=== PATIENT | female | born 1960 | race Caucasian/White ===

== ENCOUNTER 2019-07-28 18:38 | Emergency (ER) | payer MEDICARE, BC ==
[2019-07-28 18:53] VITALS: BP 169/71; PULSE 64
[2019-07-28] MEDS ORDERED: Sodium Chloride 0.9% 10 ML Syringe FLUSH PRN (19:42)
[2019-07-28] MEDS ORDERED: Sodium Chloride 0.9% 1,000 ML IV ONE (19:43)
[2019-07-28] MEDS ORDERED: Alum Hydrox/Mag Hydrox/Simeth 30 ML, Lidocaine 2% 15 ML PO ONE ×2 (21:55)
[2019-07-28] MEDS ORDERED: Ondansetron 4 MG/2 ML SDV IVPUSH ONE (22:36)
[2019-07-28] MEDS ORDERED: Famotidine 20 MG/2 ML SDV IVPUSH ONE (22:41)
--- NOTE | 2019-07-28 23:01 | EDM.PDOC ---
ED HPI GENERAL MEDICAL PROBLEM - General Chief Complaint: Abdominal Pain Stated Complaint: abdominal and back pain Time Seen by Provider: 07/28/19 19:14 Source of Information: Reports: Patient History Limitations: Reports: No Limitations - History of Present Illness INITIAL COMMENTS - FREE TEXT/NARRATIVE: 58-year-old female presents for evaluation and treatment of abdominal pain. Patient reports pain started on Friday. States that started in the left side of her back. Now radiates into her left upper quadrant and epigastric area. She feels that eating worsens the pain. She reports associated symptoms of nausea, decreased appetite and diaphoresis. She's not tried any esoz-pwl-[id number] medications such as Tylenol or Motrin. She denies any vomiting or syncope. States that she has chronic diarrhea from being on several stool softeners. Last bowel movement was today. No blood in her stool. She reports she has been feeling lightheaded. She has not slept since Friday due to the pain. She reports subjective fevers and chills. She is a diabetic and states that her sugars have been running in the high side around to 59. Reports that she is a history of kidney failure. She is not currently on dialysis they're currently watching her kidney function. Primary care provider is Dr. Ho. Scaffolder is Dr. Gee. Left Upper Abdomen Pain Score (Numeric/FACES): 9 - Related Data Allergies Allergy/AdvReac Type Severity Reaction Status Date / Time acetaminophen Allergy Chills Verified 07/28/19 18:58 [From Darvocet-N] clindamycin Allergy Hives Verified 07/28/19 18:58 codeine Allergy Rash Verified 07/31/19 10:17 duloxetine [From Cymbalta] Allergy Cannot Verified 07/31/19 10:17 Remember ibuprofen [From Motrin] Allergy Rash Verified 07/31/19 10:17 insulin detemir Allergy Swelling Verified 07/31/19 10:17 [From Levemir U-100 Insulin] iodine Allergy Facial Verified 07/31/19 10:17 Swelling milk Allergy Diarrhea Verified 07/31/19 10:17 propoxyphene Allergy Chills Verified 07/31/19 10:17 [From Darvocet-N] ranolazine [From Ranexa] Allergy Cannot Verified 07/31/19 10:17 Remember shellfish derived Allergy Shortness Verified 07/31/19 10:17 of Breath Sulfa (Sulfonamide Allergy Cannot Verified 07/31/19 10:17 Antibiotics) Remember aspartame AdvReac Nausea and Verified 07/28/19 18:58 Vomiting eszopiclone [From Lunesta] AdvReac Confusion Verified 07/28/19 18:58 gabapentin [From Neurontin] AdvReac Confusion Verified 07/28/19 18:58 sulfanilamide [Sulfanilamide] AdvReac Nausea and Verified 07/28/19 18:58 Vomiting EGGS AdvReac Diarrhea Uncoded 09/17/18 12:10 Home Meds: Home Meds Docusate Sodium [Stool Softener] 200 mg PO BID 03/28/14 [History] Insulin Aspart [Novolog Flexpen] 0 units SUBCUT ASDIRECTED 03/28/14 [History] Irbesartan [Avapro] 150 mg PO DAILY 03/28/14 [History] Levothyroxine Sodium 25 mcg PO ASDIRECTED 03/28/14 [History] Multivit-Min/FA/Lycopene/Lut [Centrum Silver] 1 tab PO DAILY 03/28/14 [History] Polyethylene Glycol 3350 [MiraLAX] 17 gm PO BID PRN 03/28/14 [History] Simvastatin 20 mg PO DAILY 03/28/14 [History] hydrALAZINE [Apresoline] 50 mg PO BID 03/28/14 [History] Cholecalciferol (Vitamin D3) [Vitamin D3] 5,000 unit PO DAILY 01/24/15 [History] Aspirin [Adult Low Dose Aspirin EC] 81 mg PO DAILY 09/17/18 [History] Bumetanide 2 mg PO ASDIRECTED 09/17/18 [History] Ferrous Sulfate 325 mg PO DAILY 09/17/18 [History] Folic Acid 1 mg PO DAILY 09/17/18 [History] Isosorbide Mononitrate [Imdur] 60 mg PO DAILY 09/17/18 [History] Metoprolol Succinate 200 mg PO DAILY 09/17/18 [History] amLODIPine Besylate [Amlodipine Besylate] 5 mg PO DAILY 09/17/18 [History] metOLazone [Metolazone] 2.5 mg PO MOTHSA 09/17/18 [History] prednisoLONE acetate [Pred Forte 1% Ophth Susp] 1 drop EYERT TID 09/17/18 [ History] Insulin Glarg,Human.Rec.Analog [Lantus Solostar] 40 units SQ DAILY 11/03/18 [ History] Linaclotide [Linzess] 145 mcg PO DAILY 11/03/18 [History] Omeprazole 20 mg PO BID 11/03/18 [History] guaiFENesin [Mucinex] 1,200 mg PO BID 11/03/18 [History] Ondansetron [Zofran ODT] 4 mg PO Q8H PRN #20 tab.dis 07/28/19 [Rx] Sucralfate [Carafate] 1 gm PO TID #21 tablet 07/28/19 [Rx] HYDROmorphone [Dilaudid] 2 mg PO Q6H PRN #10 tab 07/31/19 [Rx] Past Medical History HEENT History: Reports: Impaired Vision, Other (See Below) Other HEENT History: glasses and dentures Cardiovascular History: Reports: Heart Failure, High Cholesterol, Hypertension Other Cardiovascular History: peripheral edema, mitral valve regurgitation, diastolic dysfunction, coronary angiogram Respiratory History: Reports: None Gastrointestinal History: Reports: Gastritis, GERD, Other (See Below) Other Gastrointestinal History: abdominal pain, gastroparesis Genitourinary History: Reports: Chronic Renal Insuffiency Other Genitourinary History: Pt has shunt to left arm for dialysis. 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: Musculoskeletal History: Reports: Back Pain, Chronic Other Musculoskeletal History: myofascial pain, shoulder pain, bilateral wrist pain, right bunion Neurological History: Reports: CVA, Neuropathy, Diabetic Other Neuro History: cerebral artery occulusion with infarction, cervical and lumbar degenerative disc disease Psychiatric History: Reports: Anxiety, Depression Endocrine/Metabolic History: Reports: Diabetes, Type II, Hypothyroidism, Obesity /BMI 30+ Hematologic History: Reports: Anemia, B12 Deficiency, Iron Deficiency Immunologic History: Reports: None Oncologic (Cancer) History: Reports: None Dermatologic History: Reports: None Other Dermatologic History: toe ulcer, hallux limitus, cyst excsion - Infectious Disease History Infectious Disease History: Reports: None - Past Surgical History HEENT Surgical History: Reports: Cataract Surgery, Oral Surgery, Tonsillectomy Cardiovascular Surgical History: Reports: Other (See Below) Respiratory Surgical History: Reports: None GI Surgical History: Reports: Appendectomy, Colonoscopy, EGD Female Surgical History: Reports: Section, Oophorectomy Musculoskeletal Surgical History: Reports: Carpal Tunnel, ORIF, Shoulder Surgery , Other (See Below) Oncologic Surgical History: Reports: None Social & Family History - Tobacco Use Smoking Status *Q: Never Smoker - Caffeine Use Caffeine Use: Reports: Soda - Recreational Drug Use Recreational Drug Use: No - Living Situation & Occupation Living situation: Reports: , with Family (Son) Occupation: Unemployed ED ROS GENERAL - Review of Systems Review Of Systems: See Below Constitutional: Reports: Fever (subjective), Chills, Malaise, Diaphoresis, Decreased Appetite Cardiovascular: Reports: Lightheadedness. Denies: Chest Pain, Syncope Endocrine: Denies: High Glucose, Low Glucose GI/Abdominal: Reports: Abdominal Pain (LUQ and epigastric), Diarrhea (chronic), Nausea. Denies: Hematochezia, Melena, Vomiting : Reports: Flank Pain (left) Neurological: Denies: Syncope ED EXAM, GI/ABD - Physical Exam Exam: See Below Exam Limited By: No Limitations General Appearance: Alert, WD/WN, No Apparent Distress, Obese Ears: Normal External Exam Nose: Normal Inspection Throat/Mouth: Normal Inspection, Normal Lips, Normal Oropharynx, Normal Voice, No Airway Compromise Neck: Normal Inspection Respiratory/Chest: No Respiratory Distress, Lungs Clear, Normal Breath Sounds Cardiovascular: Normal Peripheral Pulses, Regular Rate, Rhythm, No Murmur GI/Abdominal Exam: Normal Bowel Sounds, Soft, No Distention, Tender (epigastric and LUQ). No: Guarding, Rigid Neurological: Alert, Oriented, Normal Cognition Psychiatric: Normal Affect, Normal Mood Skin Exam: Warm, Dry, Normal Color Course - Vital Signs Last Recorded V/S: Last Vital Signs Temp 97.7 F 07/28/19 19:07 Pulse 64 07/28/19 18:48 Resp 16 07/28/19 18:48 BP 169/71 H 07/28/19 18:48 Pulse Ox 100 07/28/19 18:48 - Orders/Labs/Meds Labs: Laboratory Tests 07/28/19 07/28/19 07/28/19 Range/Units 20:30 20:30 21:33 WBC 7.50 (3.98-10.04) K/mm3 RBC 4.24 (3.98-5.22) M/mm3 Hgb 10.3 L (11.2-15.7) gm/L Hct 33.7 L (34.1-44.9) % MCV 79.5 (79.4-94.8) fl MCH 24.3 L (25.6-32.2) pg MCHC 30.6 L (32.2-35.5) g/dl RDW Std Deviation 47.1 H (36.4-46.3) fL Plt Count 271 (182-369) K/mm3 MPV 10.6 (9.4-12.3) fl Neut % (Auto) 74.0 H (34.0-71.1) % Lymph % (Auto) 16.1 L (19.3-51.7) % Lyman % (Auto) 7.2 (4.7-12.5) % Eos % (Auto) 2.3 (0.7-5.8) Baso % (Auto) 0.3 (0.1-1.2) % Neut # (Auto) 5.55 (1.56-6.13) K/mm3 Lymph # (Auto) 1.21 (1.18-3.74) K/mm3 Lyman # (Auto) 0.54 H (0.24-0.36) K/mm3 Eos # (Auto) 0.17 (0.04-0.36) K/mm3 Baso # (Auto) 0.02 (0.01-0.08) K/mm3 Sodium 137 (136-145) mEq/L Potassium 3.6 (3.5-5.1) mEq/L Chloride 101 (98-107) mEq/L Carbon Dioxide 27 (21-32) mEq/L Anion Gap 12.6 (5-15) BUN 71 H (7-18) mg/dL Creatinine 2.6 H (0.55-1.02) mg/dL Est Cr Clr Drug Dosing 20.61 mL/min Estimated GFR (MDRD) 19 (>60) mL/min BUN/Creatinine Ratio 27.3 H (14-18) Glucose 149 H (74-106) mg/dL Calcium 9.1 (8.5-10.1) mg/dL Total Bilirubin 0.4 (0.2-1.0) mg/dL AST 7 L (15-37) U/L ALT 11 L (14-59) U/L Alkaline Phosphatase 130 H (46-116) U/L C-Reactive Protein 2.2 H* (<1.0) mg/dL Total Protein 7.8 (6.4-8.2) g/dl Albumin 3.4 (3.4-5.0) g/dl Globulin 4.4 gm/dL Albumin/Globulin Ratio 0.8 L (1-2) Lipase 43 L (73-393) U/L Urine Color Yellow (Yellow) Urine Appearance Clear (Clear) Urine pH 6.0 (5.0-8.0) Ur Specific [place] 1.010 (1.005-1.030) Urine Protein Negative (Negative) Urine Glucose (UA) Negative (Negative) Urine Ketones Negative (Negative) Urine Occult Blood Negative (Negative) Urine Nitrite Negative (Negative) Urine Bilirubin Negative (Negative) Urine Urobilinogen 0.2 (0.2-1.0) Ur Leukocyte Esterase Negative (Negative) Urine RBC Not seen (0-5) /hpf Urine WBC Not seen (0-5) /hpf Ur Squamous Epith Cells 0-5 (0-5) /hpf Urine Bacteria Not seen (FEW) /hpf Urine Mucus Not seen (FEW) /hpf Meds: Medications Discontinued Medications Generic Name Dose Route Start Last Admin Trade Name Freq PRN Reason Stop Dose Admin Al Hydroxide/Mg Hydroxide 30 0 ml 07/28/19 21:55 07/28/19 22:12 ml/ Lidocaine HCl 15 ml PO 07/28/19 21:56 45 ml ONETIME ONE Administration Famotidine 20 mg 07/28/19 22:41 07/28/19 22:48 Pepcid IVPUSH 07/28/19 22:42 20 mg ONETIME ONE Administration Hydromorphone HCl 0.5 mg 07/28/19 23:28 07/28/19 23:48 Dilaudid IVPUSH 07/28/19 23:29 0.5 mg ONETIME ONE Administration Sodium Chloride 1,000 mls @ 999 mls/hr 07/28/19 19:43 07/28/19 20:33 Normal Saline IV 07/28/19 20:43 999 mls/hr ONETIME ONE Administration Ondansetron HCl 4 mg 07/28/19 22:36 07/28/19 22:44 Zofran IVPUSH 07/28/19 22:37 4 mg ONETIME ONE Administration Sodium Chloride 10 ml 07/28/19 19:42 07/28/19 20:33 Saline Flush FLUSH 10 ml ASDIRECTED PRN Administration Keep Vein Open - Radiology Interpretation Free Text/Narrative:: CT of the abdomen and pelvis without contrast impression per vrad: no acute findings. decompressed stomach which may or may not be pathologic. If pathologic , there could be gastritis - Re-Assessments/Exams Free Text/Narrative Re-Assessment/Exam: 07/28/19 23:23 I reviewed the labs and imaging with the patient. Suspect gastritis as the cause of her symptoms today. EGD report from one year ago reviewed. negative for h.pylori. Will discharge home at this time. Recommend follow-up in the clinic. Discharge instructions as documented. Departure - Departure Time of Disposition: 23:29 Disposition: Home, Self-Care 01 Condition: Fair Clinical Impression: Gastritis - Discharge Information *PRESCRIPTION DRUG MONITORING PROGRAM REVIEWED*: No *COPY OF PRESCRIPTION DRUG MONITORING REPORT IN PATIENT CHARO: No Prescriptions: Ondansetron [Zofran ODT] 4 mg PO Q8H PRN #20 tab.dis PRN Reason: Nausea Sucralfate [Carafate] 1 gm PO TID #21 tablet Instructions: Gastritis, Adult, [id number] Referrals: Shania Ho MD [Primary Care Provider] - Forms: ED Department Discharge Additional Instructions: You were given medication in the ER that can affect your ability to drive and operate machinery. Do not drive or operate machinery within 10 hours of taking prescription narcotic pain medication. zofran 1 tab sublingual every 8 hours prn nausea. Carafate 1 tab 3 times a day. Follow-up with your primary care provider this week or early next week. please return to the ER if your symptoms change or worsen.[email or web address]
[2019-07-28] MEDS ORDERED: HYDROmorphone 0.5 MG/0.5 ML Syringe IVPUSH ONE (23:28)
--- NOTE | 2019-08-02 06:39 | CT ---
CT abdomen and pelvis Technique: Multiple axial sections were obtained from above the dome of the diaphragm inferiorly through the pubic symphysis. Intravenous and oral contrast was not utilized. Study has been performed as a ureteral stone protocol. Comparison: Prior CT abdomen and pelvis exam of 06/18/12. Findings: Visualized lung bases show nothing acute. Calcifications are seen within the spleen believed to be vascular. Noncontrast appearance of the liver shows no focal abnormality. Small layering calcified gallstones are seen within the gallbladder. Adrenal glands appear within normal limits. Pancreas is atrophic and shows no other discrete abnormality. Soft tissue nodule is noted medial to the spleen which is felt compatible with accessory splenic tissue. Aorta shows no aneurysm with mild atherosclerotic calcification. This atherosclerotic calcification continues into branch vessels as well as into the iliac arteries. No aneurysm is seen. No pelvic mass or adenopathy is seen. Appendix is not visualized with certainty. No abnormal calcifications are seen within the right or left kidneys. No ureteral dilatation or ureteral stone is seen. Other findings: Small hiatal hernia is seen. Thickening of the stomach wall is seen which is most likely due to lack of distention. Bone window settings were reviewed which show scattered disc space narrowing and vacuum phenomena within the spine as well as scattered endplate osteophytes. Impression: 1. No renal calculi, ureteral dilatation or ureteral stone is seen. 2. Wall thickening within the stomach most likely due to under-distention. 3. Small layering calcified gallstones. 4. Other findings as described above which appear nonacute. Diagnostic code #3 I agree with preliminary report from [facility], finalized on 07/28/19, 10:45 PM Central Time
== END 2019-07-29 00:12 | disposition home or self-care (01) ==
LOC: JD.ED 18:38
DX: K29.70 Gastritis, unspecified, without bleeding (principal); E11.22 Type 2 diabetes mellitus with diabetic chronic kidney disease; I13.0 Hypertensive heart and chronic kidney disease with heart failure and stage 1 through stage 4 chronic kidney disease, or unspecified chronic kidney disease; N18.9 Chronic kidney disease, unspecified; I50.9 Heart failure, unspecified; E03.9 Hypothyroidism, unspecified; E66.9 Obesity, unspecified; F32.9 Major depressive disorder, single episode, unspecified; F41.9 Anxiety disorder, unspecified; E78.00 Pure hypercholesterolemia, unspecified; K21.9 Gastro-esophageal reflux disease without esophagitis; Z88.8 Allergy status to other drugs, medicaments and biological substances; Z91.013 Allergy to seafood; Z88.5 Allergy status to narcotic agent; Z91.011 Allergy to milk products; Z91.048 Other nonmedicinal substance allergy status; Z79.899 Other long term (current) drug therapy; Z79.82 Long term (current) use of aspirin; Z79.4 Long term (current) use of insulin; Z68.30 Body mass index [BMI] 30.0-30.9, adult; Z98.890 Other specified postprocedural states; Z90.49 Acquired absence of other specified parts of digestive tract; Z90.722 Acquired absence of ovaries, bilateral; Z86.2 Personal history of diseases of the blood and blood-forming organs and certain disorders involving the immune mechanism
CPT/HCPCS: 36415; 74176; 80053; 81001; 83690; 85025; 86140; 96361; 96374; 96375; 99284; A9270; J1170; J2405; J3490; J7040

== ENCOUNTER 2019-07-31 10:11 | Emergency (ER) | payer MEDICARE, BC ==
[2019-07-31 10:23] VITALS: BP 141/48; PULSE 66
[2019-07-31] MEDS ORDERED: Sodium Chloride 0.9% 10 ML Syringe FLUSH PRN (10:47)
[2019-07-31] MEDS ORDERED: Sodium Chloride 0.9% 1,000 ML IV STA (10:47)
[2019-07-31] MEDS: Metoclopramide 10 MG/2 ML SDV IVPUSH ONE ×2 (11:00→11:02)
--- NOTE | 2019-07-31 11:53 | EDM.PDOC ---
ED HPI GENERAL MEDICAL PROBLEM - General Chief Complaint: Abdominal Pain Stated Complaint: ABDOMINAL PAIN Time Seen by Provider: 07/31/19 10:31 Source of Information: Reports: Patient History Limitations: Reports: No Limitations - History of Present Illness INITIAL COMMENTS - FREE TEXT/NARRATIVE: The patient presents with abdominal pain. This started about 4 days ago. She was awa here about 3 days ago and had a CT done that did not show any problems other then gastritis. Her creatinine was elevated but she has renal insufficiency for which she sees Dr Gee. She still feels bloated and she has not had a bowel movement for a few days. She has no fever, chills, cough, congestion, chest pain or shortness of breath. Onset: Gradual Duration: Day(s): (4) Location: Reports: Abdomen Quality: Reports: Ache Severity: Moderate Improves with: Reports: None Worsens with: Reports: None Associated Symptoms: Reports: Nausea/Vomiting. Denies: Chest Pain, Cough, Fever /Chills, Headaches, Shortness of Breath Abdomen Pain Score (Numeric/FACES): 10 - Related Data Allergies Allergy/AdvReac Type Severity Reaction Status Date / Time acetaminophen Allergy Chills Verified 07/28/19 18:58 [From Darvocet-N] clindamycin Allergy Hives Verified 07/28/19 18:58 codeine Allergy Rash Verified 07/31/19 10:17 duloxetine [From Cymbalta] Allergy Cannot Verified 07/31/19 10:17 Remember ibuprofen [From Motrin] Allergy Rash Verified 07/31/19 10:17 insulin detemir Allergy Swelling Verified 07/31/19 10:17 [From Levemir U-100 Insulin] iodine Allergy Facial Verified 07/31/19 10:17 Swelling milk Allergy Diarrhea Verified 07/31/19 10:17 propoxyphene Allergy Chills Verified 07/31/19 10:17 [From Darvocet-N] ranolazine [From Ranexa] Allergy Cannot Verified 07/31/19 10:17 Remember shellfish derived Allergy Shortness Verified 07/31/19 10:17 of Breath Sulfa (Sulfonamide Allergy Cannot Verified 07/31/19 10:17 Antibiotics) Remember aspartame AdvReac Nausea and Verified 07/28/19 18:58 Vomiting eszopiclone [From Lunesta] AdvReac Confusion Verified 07/28/19 18:58 gabapentin [From Neurontin] AdvReac Confusion Verified 07/28/19 18:58 sulfanilamide [Sulfanilamide] AdvReac Nausea and Verified 07/28/19 18:58 Vomiting EGGS AdvReac Diarrhea Uncoded 09/17/18 12:10 Home Meds: Home Meds Docusate Sodium [Stool Softener] 200 mg PO BID 03/28/14 [History] Insulin Aspart [Novolog Flexpen] 0 units SUBCUT ASDIRECTED 03/28/14 [History] Irbesartan [Avapro] 150 mg PO DAILY 03/28/14 [History] Levothyroxine Sodium 25 mcg PO ASDIRECTED 03/28/14 [History] Multivit-Min/FA/Lycopene/Lut [Centrum Silver] 1 tab PO DAILY 03/28/14 [History] Polyethylene Glycol 3350 [MiraLAX] 17 gm PO BID PRN 03/28/14 [History] Simvastatin 20 mg PO DAILY 03/28/14 [History] hydrALAZINE [Apresoline] 50 mg PO BID 03/28/14 [History] Cholecalciferol (Vitamin D3) [Vitamin D3] 5,000 unit PO DAILY 01/24/15 [History] Aspirin [Adult Low Dose Aspirin EC] 81 mg PO DAILY 09/17/18 [History] Bumetanide 2 mg PO ASDIRECTED 09/17/18 [History] Ferrous Sulfate 325 mg PO DAILY 09/17/18 [History] Folic Acid 1 mg PO DAILY 09/17/18 [History] Isosorbide Mononitrate [Imdur] 60 mg PO DAILY 09/17/18 [History] Metoprolol Succinate 200 mg PO DAILY 09/17/18 [History] amLODIPine Besylate [Amlodipine Besylate] 5 mg PO DAILY 09/17/18 [History] metOLazone [Metolazone] 2.5 mg PO MOTHSA 09/17/18 [History] prednisoLONE acetate [Pred Forte 1% Ophth Susp] 1 drop EYERT TID 09/17/18 [ History] Insulin Glarg,Human.Rec.Analog [Lantus Solostar] 40 units SQ DAILY 11/03/18 [ History] Linaclotide [Linzess] 145 mcg PO DAILY 11/03/18 [History] Omeprazole 20 mg PO BID 11/03/18 [History] guaiFENesin [Mucinex] 1,200 mg PO BID 11/03/18 [History] Ondansetron [Zofran ODT] 4 mg PO Q8H PRN #20 tab.dis 07/28/19 [Rx] Sucralfate [Carafate] 1 gm PO TID #21 tablet 07/28/19 [Rx] HYDROmorphone [Dilaudid] 2 mg PO Q6H PRN #10 tab 07/31/19 [Rx] Past Medical History HEENT History: Reports: Impaired Vision, Other (See Below) Other HEENT History: glasses and dentures Cardiovascular History: Reports: Heart Failure, High Cholesterol, Hypertension Other Cardiovascular History: peripheral edema, mitral valve regurgitation, diastolic dysfunction, coronary angiogram Respiratory History: Reports: None Gastrointestinal History: Reports: Gastritis, GERD, Other (See Below) Other Gastrointestinal History: abdominal pain, gastroparesis Genitourinary History: Reports: Chronic Renal Insuffiency Other Genitourinary History: Pt has shunt to left arm for dialysis. 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: Musculoskeletal History: Reports: Back Pain, Chronic Other Musculoskeletal History: myofascial pain, shoulder pain, bilateral wrist pain, right bunion Neurological History: Reports: CVA, Neuropathy, Diabetic Other Neuro History: cerebral artery occulusion with infarction, cervical and lumbar degenerative disc disease Psychiatric History: Reports: Anxiety, Depression Endocrine/Metabolic History: Reports: Diabetes, Type II, Hypothyroidism, Obesity /BMI 30+ Hematologic History: Reports: Anemia, B12 Deficiency, Iron Deficiency Immunologic History: Reports: None Oncologic (Cancer) History: Reports: None Dermatologic History: Reports: None Other Dermatologic History: toe ulcer, hallux limitus, cyst excsion - Infectious Disease History Infectious Disease History: Reports: None - Past Surgical History HEENT Surgical History: Reports: Cataract Surgery, Oral Surgery, Tonsillectomy Cardiovascular Surgical History: Reports: Other (See Below) Respiratory Surgical History: Reports: None GI Surgical History: Reports: Appendectomy, Colonoscopy, EGD Female Surgical History: Reports: Section, Oophorectomy Musculoskeletal Surgical History: Reports: Carpal Tunnel, ORIF, Shoulder Surgery , Other (See Below) Oncologic Surgical History: Reports: None Social & Family History - Tobacco Use Smoking Status *Q: Never Smoker - Caffeine Use Caffeine Use: Reports: Tea - Recreational Drug Use Recreational Drug Use: No - Living Situation & Occupation Living situation: Reports: , with Family (Son) Occupation: Unemployed ED ROS GENERAL - Review of Systems Review Of Systems: See Below Constitutional: Reports: No Symptoms HEENT: Reports: No Symptoms Respiratory: Reports: No Symptoms Cardiovascular: Reports: No Symptoms Endocrine: Reports: No Symptoms GI/Abdominal: Reports: Abdominal Pain, Constipation, Nausea. Denies: Diarrhea, Vomiting : Reports: No Symptoms Musculoskeletal: Reports: No Symptoms Skin: Reports: No Symptoms ED EXAM, GI/ABD - Physical Exam Exam: See Below Exam Limited By: No Limitations General Appearance: Alert, No Apparent Distress Ears: Normal External Exam Nose: Normal Inspection Head: Atraumatic, Normocephalic Neck: Normal Inspection Respiratory/Chest: No Respiratory Distress, Lungs Clear, Normal Breath Sounds Cardiovascular: Regular Rate, Rhythm, No Edema, No Murmur GI/Abdominal Exam: Soft, No Organomegaly, No Mass, Tender (Mild generalized tenderness) Course - Vital Signs Last Recorded V/S: Last Vital Signs Temp 97.4 F 07/31/19 10:17 Pulse 66 07/31/19 10:17 Resp 13 07/31/19 10:17 BP 141/48 H 07/31/19 10:17 Pulse Ox 96 07/31/19 10:17 - Orders/Labs/Meds Orders: Active Orders 24 hr Category Date Time Status Peripheral IV Care [RC] . DIRECTED Care 07/31/19 10:48 Active Abdomen 1V Upright [CR] Stat Exams 07/31/19 10:47 Taken Sodium Chloride 0.9% [Saline Flush] Med 07/31/19 10:47 Active 10 ml FLUSH ASDIRECTED PRN ED Antiemetic Medication Reflex [OM.PC] Stat Oth 07/31/19 10:48 Ordered Peripheral IV Insertion Adult [OM.PC] Stat Oth 07/31/19 10:47 Ordered Medication Orders Sodium Chloride (Saline Flush) 10 ml FLUSH ASDIRECTED PRN PRN Reason: Keep Vein Open Last Admin: 07/31/19 11:01 Dose: 10 ml Labs: Laboratory Tests 07/31/19 07/31/19 Range/Units 10:55 10:55 WBC 7.17 (3.98-10.04) K/mm3 RBC 3.97 L (3.98-5.22) M/mm3 Hgb 9.7 L (11.2-15.7) gm/L Hct 31.7 L (34.1-44.9) % MCV 79.8 (79.4-94.8) fl MCH 24.4 L (25.6-32.2) pg MCHC 30.6 L (32.2-35.5) g/dl RDW Std Deviation 46.6 H (36.4-46.3) fL Plt Count 275 (182-369) K/mm3 MPV 11.1 (9.4-12.3) fl Neut % (Auto) 71.1 (34.0-71.1) % Lymph % (Auto) 17.2 L (19.3-51.7) % [place] % (Auto) 8.4 (4.7-12.5) % Eos % (Auto) 2.8 (0.7-5.8) Baso % (Auto) 0.4 (0.1-1.2) % Neut # (Auto) 5.10 (1.56-6.13) K/mm3 Lymph # (Auto) 1.23 (1.18-3.74) K/mm3 [place] # (Auto) 0.60 H (0.24-0.36) K/mm3 Eos # (Auto) 0.20 (0.04-0.36) K/mm3 Baso # (Auto) 0.03 (0.01-0.08) K/mm3 Sodium 139 (136-145) mEq/L Potassium 3.7 (3.5-5.1) mEq/L Chloride 101 (98-107) mEq/L Carbon Dioxide 25 (21-32) mEq/L Anion Gap 16.7 H (5-15) BUN 74 H (7-18) mg/dL Creatinine 3.4 H (0.55-1.02) mg/dL Est Cr Clr Drug Dosing 15.76 mL/min Estimated GFR (MDRD) 14 (>60) mL/min BUN/Creatinine Ratio 21.8 H (14-18) Glucose 168 H (74-106) mg/dL Calcium 9.5 (8.5-10.1) mg/dL Total Bilirubin 0.2 (0.2-1.0) mg/dL AST 9 L (15-37) U/L ALT 12 L (14-59) U/L Alkaline Phosphatase 120 H (46-116) U/L Total Protein 7.6 (6.4-8.2) g/dl Albumin 3.4 (3.4-5.0) g/dl Globulin 4.2 gm/dL Albumin/Globulin Ratio 0.8 L (1-2) Lipase 43 L (73-393) U/L Meds: Medications Generic Name Dose Route Start Last Admin Trade Name Freq PRN Reason Stop Dose Admin Sodium Chloride 10 ml 07/31/19 10:47 07/31/19 11:01 Saline Flush FLUSH 10 ml ASDIRECTED PRN Administration Keep Vein Open Discontinued Medications Generic Name Dose Route Start Last Admin Trade Name Freq PRN Reason Stop Dose Admin Sodium Chloride 1,000 mls @ 1,000 mls/hr 07/31/19 10:47 07/31/19 11:00 Normal Saline IV 07/31/19 11:46 1,000 mls/hr .BOLUS STA Administration Metoclopramide HCl 10 mg 07/31/19 10:47 07/31/19 11:02 Reglan IVPUSH 07/31/19 10:48 Not Given ONETIME ONE - Re-Assessments/Exams Free Text/Narrative Re-Assessment/Exam: 07/31/19 11:51 I ordered labs and an x-ray of her abdomen. Her Hgb is down to 9.7 today. Three days ago it was 10.3. Her anion gap is elevated at 16.7. Her BUN is elevated at 74. Her creatinine is elevated at 3.4. Her creatinine 3 days ago was 2.4. Her glucose is elevated at 168. Her alk phos is elevated at 120. Her lipase is low at 43. Her x-ray does show moderate amount of stool. 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 He was okay with the fluid bolus. He wanted her to see Dr Tristan this week. I will discharge her home. 07/31/19 12:32 I was ready to discharge her and she did not feel well. She checked her blood sugar ant it was 52. I will have her take some juice and we will get her something to eat. 07/31/19 13:39 She is doing better and her blood sugar is up now in the 100s. Departure - Departure Time of Disposition: 12:20 Disposition: Home, Self-Care 01 Condition: Good Clinical Impression: Abdominal pain Qualifiers: Abdominal location: generalized Qualified Code(s): R10.84 - Generalized abdominal pain Chronic renal insufficiency Qualifiers: Chronic kidney disease stage: stage 4 (severe) Qualified Code(s): N18.4 - Chronic kidney disease, stage 4 (severe) Anemia Qualifiers: Anemia type: other cause Other causes of anemia: other cause, not classified Qualified Code(s): D64.89 - Other specified anemias - Discharge Information *PRESCRIPTION DRUG MONITORING PROGRAM REVIEWED*: No *COPY OF PRESCRIPTION DRUG MONITORING REPORT IN PATIENT CHARO: No Prescriptions: HYDROmorphone [Dilaudid] 2 mg PO Q6H PRN #10 tab PRN Reason: Pain Referrals: Shania Ho MD [Primary Care Provider] - Clay Gee MD [Ordering Only Provider] - 1 Week Forms: ED Department Discharge Additional Instructions: Drink more water over the next few days. Take your medication as prescribed. Take the dilaudid as needed for pain. Take more miralax 3 times per day for 5 days. Follow up with Dr Gee this week. Please return if you are worse. - My Orders Last 24 Hours: My Active Orders 07/31/19 10:47 Abdomen 1V Upright [CR] Stat Sodium Chloride 0.9% [Saline Flush] 10 ml FLUSH ASDIRECTED PRN Peripheral IV Insertion Adult [OM.PC] Stat 07/31/19 10:48 Peripheral IV Care [RC] . DIRECTED ED Antiemetic Medication Reflex [OM.PC] Stat - Assessment/Plan Last 24 Hours: My Active Orders 07/31/19 10:47 Abdomen 1V Upright [CR] Stat Sodium Chloride 0.9% [Saline Flush] 10 ml FLUSH ASDIRECTED PRN Peripheral IV Insertion Adult [OM.PC] Stat 07/31/19 10:48 Peripheral IV Care [RC] . DIRECTED ED Antiemetic Medication Reflex [OM.PC] Stat
--- NOTE | 2019-08-02 06:38 | CR ---
Abdomen: Upright view of the abdomen was obtained. Comparison: Prior abdominal x-ray of 08/21/11 as well as recent noncontrast CT study of the abdomen and pelvis performed on 07/28/19. Bowel gas pattern is normal. No free air is identified. No abnormal calcifications or discrete soft tissue finding is seen. Bony structures show nothing acute. Impression: 1. Nothing acute is seen on upright abdominal x-ray. Diagnostic code #2
== END 2019-07-31 13:50 | disposition home or self-care (01) ==
LOC: JD.ED 10:11
DX: R10.84 Generalized abdominal pain (principal); E11.22 Type 2 diabetes mellitus with diabetic chronic kidney disease; I13.0 Hypertensive heart and chronic kidney disease with heart failure and stage 1 through stage 4 chronic kidney disease, or unspecified chronic kidney disease; N18.4 Chronic kidney disease, stage 4 (severe); I50.9 Heart failure, unspecified; E78.00 Pure hypercholesterolemia, unspecified; F41.9 Anxiety disorder, unspecified; D64.89 Other specified anemias; F32.9 Major depressive disorder, single episode, unspecified; E03.9 Hypothyroidism, unspecified; E11.40 Type 2 diabetes mellitus with diabetic neuropathy, unspecified; E66.9 Obesity, unspecified; Z68.30 Body mass index [BMI] 30.0-30.9, adult; Z86.73 Personal history of transient ischemic attack (TIA), and cerebral infarction without residual deficits; Z91.013 Allergy to seafood; Z91.048 Other nonmedicinal substance allergy status; Z88.2 Allergy status to sulfonamides; Z91.011 Allergy to milk products; Z88.8 Allergy status to other drugs, medicaments and biological substances; Z79.4 Long term (current) use of insulin; Z79.899 Other long term (current) drug therapy; Z90.49 Acquired absence of other specified parts of digestive tract; Z88.5 Allergy status to narcotic agent; Z88.1 Allergy status to other antibiotic agents; Z91.018 Allergy to other foods; Z79.82 Long term (current) use of aspirin; Z90.722 Acquired absence of ovaries, bilateral; Z98.890 Other specified postprocedural states
CPT/HCPCS: 36415; 74018; 80053; 83690; 85025; 96360; 99284; J7040; J2765

== ENCOUNTER 2019-08-30 08:12 | Day surgery (SDC) | payer MEDICARE, BC ==
[~2019-08-30 08:12] MED LIST: Lactated Ringers 1,000 ML IV SCH; Lidocaine 1%/Sod Bicarbonate in NS 8.4% 1 ML Syringe IDERM PRN; Sodium Chloride 0.9% 10 ML Syringe FLUSH PRN
[2019-08-30] MEDS ORDERED: Propofol 200 MG/20 ML SDV ONE (08:30)
[2019-08-30] MEDS ORDERED: Ketamine 500 mg/10 ML MDV ONE (08:30)
[2019-08-30] MEDS ORDERED: Lidocaine 1% 4 ML ONE (08:31)
[2019-08-30] MEDS ORDERED: Phenylephrine/Normal Saline 100 MCG/ML 10 ML Syringe ONE ×2 (08:41→11:05)
--- NOTE | 2019-08-30 09:27 | PCM.PREANE ---
Preanesthetic Assessment - Procedure Proposed Procedure: EGD, colonoscopy - Anesthesia/Transfusion/Family Hx Anesthesia History: Prior Anesthesia Without Reaction Family History of Anesthesia Reaction: No Transfusion History: Prior Transfusion Without Reaction Intubation History: Unknown - Review of Systems General: No Symptoms Pulmonary: No Symptoms Cardiovascular: Dyspnea on Exertion, Other (cleared by cardiology ) Gastrointestinal: No Symptoms Neurological: Headache, Other (stroke in high school, right sided weaknes, uses cane, back pain ) Other: Reports: Diabetes, Thyroid Problems, Depression, Anxiety - Physical Assessment Vital Signs: Last Vital Signs Temp 36.2 C 08/30/19 08:35 Pulse 74 08/30/19 08:35 Resp 16 08/30/19 08:35 BP 163/66 H 08/30/19 08:35 Pulse Ox 100 08/30/19 08:35 Mental Status: Alert & Oriented x3 Airway Class: Mallampati = 1 Dentition: Reports: Missing Tooth/Teeth (partials and upper denture, will be removed for case ) Thyro-Mental Finger Breadths: 3 Mouth Opening Finger Breadths: 4 ROM/Head Extension: Limited/Partial (stiffness) Lungs: Clear to Auscultation, Normal Respiratory Effort Cardiovascular: Regular Rate, Regular Rhythm - Allergies Allergies/Adverse Reactions: Allergies Allergy/AdvReac Type Severity Reaction Status Date / Time acetaminophen Allergy Chills Verified 08/27/19 11:25 [From Darvocet-N] clindamycin Allergy Hives Verified 08/27/19 11:25 codeine Allergy Rash Verified 08/27/19 11:25 duloxetine [From Cymbalta] Allergy Cannot Verified 08/27/19 11:25 Remember ibuprofen [From Motrin] Allergy Rash Verified 08/27/19 11:25 insulin detemir Allergy Swelling Verified 08/27/19 11:25 [From Levemir U-100 Insulin] iodine Allergy Facial Verified 08/27/19 11:25 Swelling milk Allergy Diarrhea Verified 08/27/19 11:25 propoxyphene Allergy Chills Verified 08/27/19 11:25 [From Darvocet-N] ranolazine [From Ranexa] Allergy Cannot Verified 08/27/19 11:25 Remember shellfish derived Allergy Shortness Verified 08/27/19 11:25 of Breath Sulfa (Sulfonamide Allergy Cannot Verified 08/27/19 11:25 Antibiotics) Remember aspartame AdvReac Nausea and Verified 08/27/19 11:25 Vomiting eszopiclone [From Lunesta] AdvReac Confusion Verified 08/27/19 11:25 gabapentin [From Neurontin] AdvReac Confusion Verified 08/27/19 11:25 sulfanilamide [Sulfanilamide] AdvReac Nausea and Verified 08/27/19 11:25 Vomiting EGGS AdvReac Diarrhea Uncoded 08/27/19 11:25 - Blood Blood Available: No - Anesthesia Plan Pre-Op Medication Ordered: None Beta Elaina: Metoprolol - Acknowledgements Anesthesia Type Planned: General Anesthesia (due to anticipated length of the procedure ) Pt an Appropriate Candidate for the Planned Anesthesia: Yes Alternatives and Risks of Anesthesia Discussed w Pt/Guardian: Yes Pt/Guardian Understands and Agrees with Anesthesia Plan: Yes PreAnesthesia Questionnaire HEENT History: Reports: Impaired Vision, Other (See Below) Other HEENT History: glasses and dentures Cardiovascular History: Reports: Blood Clots/VTE/DVT, Cardiomyopathy, Heart Failure, High Cholesterol, Hypertension Other Cardiovascular History: peripheral edema, mitral valve regurgitation, diastolic dysfunction, coronary angiogram Respiratory History: Reports: Other (See Below) Other Respiratory History: METBOLIC ACIDOSIS Gastrointestinal History: Reports: Gastritis, GERD, Other (See Below) Other Gastrointestinal History: abdominal pain, gastroparesis Genitourinary History: Reports: Chronic Renal Insuffiency Other Genitourinary History: CKD V, 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: Musculoskeletal History: Reports: Back Pain, Chronic Other Musculoskeletal History: myofascial pain, shoulder pain, bilateral wrist pain, right bunion Neurological History: Reports: CVA, Neuropathy, Diabetic Other Neuro History: cerebral artery occulusion with infarction, cervical and lumbar degenerative disc disease Psychiatric History: Reports: Anxiety, Depression Endocrine/Metabolic History: Reports: Diabetes, Type II, Hypothyroidism, Obesity /BMI 30+ Hematologic History: Reports: Anemia, B12 Deficiency, Iron Deficiency Immunologic History: Reports: None Oncologic (Cancer) History: Reports: None Dermatologic History: Reports: None Other Dermatologic History: toe ulcer, hallux limitus, cyst excsion - Infectious Disease History Infectious Disease History: Reports: None - Past Surgical History HEENT Surgical History: Reports: Cataract Surgery, Oral Surgery, Tonsillectomy Cardiovascular Surgical History: Respiratory Surgical History: Reports: None GI Surgical History: Reports: Appendectomy, Colonoscopy, EGD Female Surgical History: Reports: Section, Oophorectomy Male Surgical History: Reports: None Endocrine Surgical History: Reports: None Neurological Surgical History: Reports: None Musculoskeletal Surgical History: Reports: Carpal Tunnel, ORIF, Shoulder Surgery , Other (See Below) Other Musculoskeletal Surgeries/Procedures:: right bunion correction, bilateral carpal tunnel release Oncologic Surgical History: Reports: None Dermatological Surgical History: Reports: None - SUBSTANCE USE Smoking Status *Q: Never Smoker Recreational Drug Use History: No - HOME MEDS Home Medications: Home Meds Docusate Sodium [Stool Softener] 200 mg PO BID 03/28/14 [History] Insulin Aspart [Novolog Flexpen] 0 units SUBCUT ASDIRECTED 03/28/14 [History] Irbesartan [Avapro] 150 mg PO DAILY 03/28/14 [History] Levothyroxine Sodium 25 mcg PO SUTUWETHSA 03/28/14 [History] Multivit-Min/FA/Lycopene/Lut [Centrum Silver] 1 tab PO DAILY 03/28/14 [History] Polyethylene Glycol 3350 [MiraLAX] 17 gm PO BID PRN 03/28/14 [History] Simvastatin 20 mg PO DAILY 03/28/14 [History] hydrALAZINE [Apresoline] 50 mg PO TID 03/28/14 [History] Cholecalciferol (Vitamin D3) [Vitamin D3] 5,000 unit PO DAILY 01/24/15 [History] Bumetanide 2 mg PO BID 09/17/18 [History] Ferrous Sulfate 325 mg PO DAILY 09/17/18 [History] Folic Acid 1 mg PO DAILY 09/17/18 [History] Isosorbide Mononitrate [Imdur] 60 mg PO DAILY 09/17/18 [History] Metoprolol Succinate 200 mg PO DAILY 09/17/18 [History] amLODIPine Besylate [Amlodipine Besylate] 5 mg PO DAILY 09/17/18 [History] metOLazone [Metolazone] 2.5 mg PO MOTHSA 09/17/18 [History] Insulin Glarg,Human.Rec.Analog [Lantus Solostar] 38 units SQ DAILY 11/03/18 [ History] Omeprazole 20 mg PO BID 11/03/18 [History] Levothyroxine 50 mcg PO ASDIRECTED 08/27/19 [History] Linaclotide [Linzess] 145 mcg PO DAILY 08/27/19 [History] Sucralfate [Carafate] 1 gm PO QID 08/27/19 [History] cloNIDine HCl [Catapres] 0.5 mg PO TID 08/27/19 [History] Aspirin [Adult Low Dose Aspirin EC] 81 mg PO DAILY 08/30/19 [History] - CURRENT (IN HOUSE) MEDS Current Meds: Current Medications Lactated Ringer's (Ringers, Lactated) 1,000 mls @ 125 mls/hr IV ASDIRECTED ESPERANZA Stop: 08/30/19 23:00 Last Admin: 08/30/19 08:55 Dose: 125 mls/hr Lidocaine/Sodium Bicarbonate (Buffered Lidocaine 1% In Ns 8.4%) 0.25 ml IDERM ONETIME PRN PRN Reason: Prior to IV Start Stop: 08/30/19 23:00 Last Admin: 08/30/19 08:54 Dose: 0.25 ml Sodium Chloride (Saline Flush) 10 ml FLUSH ASDIRECTED PRN PRN Reason: Keep Vein Open Stop: 08/30/19 23:00 Discontinued Medications Lidocaine HCl (Xylocaine-Mpf 1%) Confirm Administered Dose 4 mls @ as directed .ROUTE .STK-MED ONE Stop: 08/30/19 08:32 Ketamine HCl (Ketalar) Confirm Administered Dose 500 mg .ROUTE .STK-MED ONE Stop: 08/30/19 08:31 Phenylephrine HCl (Phenylephrine In Ns 100 Mcg/Ml) Confirm Administered Dose 1 mg .ROUTE .STK-MED ONE Stop: 08/30/19 08:42 Propofol (Diprivan 20 Ml) Confirm Administered Dose 400 mg .ROUTE .STK-MED ONE Stop: 08/30/19 08:31
[2019-08-30] MEDS ORDERED: Rocuronium 50 MG/5 ML Vial ONE (09:40)
[2019-08-30] MEDS ORDERED: Sodium Chloride 0.9% 1,000 ML IV SCH (09:45)
[2019-08-30] MEDS ORDERED: Ondansetron 4 MG/2 ML SDV ONE (10:45)
[2019-08-30] MEDS ORDERED: Glycopyrrolate 0.2 MG/ML SDV ONE (10:46)
[2019-08-30] MEDS ORDERED: Neostigmine Methylsulfate 1 MG/ML 5 ML Syringe ONE (10:46)
[2019-08-30] MEDS ORDERED: Ondansetron 4 MG/2 ML SDV IVPUSH PRN (12:03)
[2019-08-30] MEDS ORDERED: Promethazine 6.25 MG in Sodium Chloride 0.9% 9 ML IV PRN (12:03)
--- NOTE | 2019-08-30 12:03 | PCM48HPAN ---
Post Anesthesia Note - EVALUATION WITHIN 48HRS OF ANESTHETIC Vital Signs in Normal Range: Yes Patient Participated in Evaluation: Yes Respiratory Function Stable: Yes Airway Patent: Yes Cardiovascular Function Stable: Yes Hydration Status Stable: Yes Pain Control Satisfactory: Yes Nausea and Vomiting Control Satisfactory: No (patient currently nauseated, will treat ) Mental Status Recovered: Yes (drowsy ) Vital Signs: Last Vital Signs Temp 36.2 C 08/30/19 08:35 Pulse 74 08/30/19 08:35 Resp 16 08/30/19 08:35 BP 163/66 H 08/30/19 08:35 Pulse Ox 100 08/30/19 08:35
[2019-08-30] MEDS ORDERED: Promethazine 6.25 MG in Sodium Chloride 0.9% 50 ML IV PRN (12:21)
--- NOTE | 2019-08-30 12:57 | OR ---
DATE OF OPERATION: 08/30/2019 SURGEON: Ngozi Portillo MD PREOPERATIVE DIAGNOSIS: 1. Abdominal pain. 2. Positive FIT test. 3. Left-sided pain as well as gastroesophageal reflux disease. POSTOPERATIVE DIAGNOSIS: 1. Gastritis. Bipsied 2. Antral polyp that was resected. 3. Fundic polyp, removed. 4. Mild distal esophagitis. Biospied 5. Ascending colon polyp. Removed 6. Internal hemorrhoids. Banded OPERATION PERFORMED: 1. Esophagogastroduodenoscopy with polypectomy and biopsies. 2. Colonoscopy with polypectomy. 3. Hemorrhoid banding. INDICATIONS AND CONSENT: Ms. Harrell is a 58-year-old who started having acute onset of abdominal pain on 07/28/2019. The patient has been evaluated multiple times in the emergency department with CT scans all appeared to be normal except for high stool burden in the colon. The patient was seen in clinic for further evaluation of this symptom of abdominal pain, and due to symptoms of positive FIT test as well as gastroesophageal reflux disease and anemia, EGD and colonoscopy were recommended to the patient and the patient agreed to proceed with the procedure. Risks, benefits, and alternatives were discussed in detail with the patient. Risks discussed included, but not limited to, bleeding, perforation, reaction to anesthetic medication, and need for additional interventions. The patient understood and signed informed consent. DESCRIPTION OF PROCEDURE: The patient was taken to the operating room, placed in a supine position. After induction of general endotracheal anesthesia, the patient's position was changed to left lateral decubitus and a formal time-out was performed. Then, we began with esophagogastroduodenoscopy. Scope was prepared and advanced through the throat into the esophagus. The proximal esophagus appeared normal. The scope was advanced into the stomach and duodenum. Duodenal bulb, 1st and 2nd portion of duodenum all appeared to be normal. There was significant amount of inflammation in the distal stomach. The antrum was biopsied for further investigation. On retroflexion, there was small hiatal hernia but no other abnormalities except there was a small, about 5 mm fundic polyp that was removed completely and submitted for pathologic review. In the antrum as well, there was about 1 cm polyp. This was removed completely with hot snare while the biopsies of the antrum as well as the fundic polyp were with cold histology forceps. Next, the scope was taken back into the stomach, the air was suctioned out, and it was taken out slowly, examining the rest of the esophagus, all appeared to be normal and the scope withdrawn. Next, we got ready for colonoscopy and first we examined the anorectal area as the patient was complaining of a feeling of obstructive mass around the perianal area. We examined the anal opening. There were some skin tags in the anal margin in the perianal area. There were 2 of them. These were large about 1 to 1.5 cm each, one was about 5 cm away from anal opening and other one was about 1 cm away from the anal opening. Posterior anus, there was what appeared to be external hemorrhoid with an internal component. There was Grade II hemorrhoids in the right posterior and left lateral aspects. Scope was inserted and advanced all the way into the cecum. Appendiceal orifice as well as the cecal valve were photographed, and then the scope was withdrawn slowly. In the distal ascending colon, there was a 1 cm sessile polyp, which we attempted to take out with a hot snare, but this was difficult because the polyp was sitting right under the colonic fold. Therefore, Jumbo forceps were used to remove this polyp completely. There was minimal blood loss. Then, slowly the scope was withdrawn. 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 The mucosa appeared to be intact. There was no irritation or any stigmata of bleeding. This was left alone. Scope was withdrawn. For the rest of the exam, there were no other abnormalities or polyps. Upon retroflexion, there were grade 2 internal hemorrhoids. Scope was withdrawn. Then, a speculum exam was performed to confirm the absence of hemorrhoids, that the patient's symptoms were consistent with hemorrhoid. We found that there were grade 2 internal hemorrhoids - right posterior and left lateral. Therefore, decision was made to band the 2 largest hemorrhoids in hopes that this will help with patient's symptoms. So, the right posterior and left lateral hemorrhoids were banded. The posterior external and internal hemorrhoids were observed and appeared to be less prominent. There was minimal blood loss for this procedure and speculum was removed and the procedure was concluded. The patient tolerated the procedure well. At the end of the procedure, the patient was extubated and taken to the PACU for further recovery. The patient will follow up in clinic in 1 week to discuss further management of her abdominal pain and discuss histology results. ANESTHESIA: ESTIMATED BLOOD LOSS: MMODAL /[id number]
[2019-08-30 13:51] VITALS: BP 116/82; PULSE 71
== END 2019-08-30 13:58 | disposition home or self-care (01) ==
LOC: JD.SDS 08:12
PROVIDERS: ATTEND Surgery
DX: K29.70 Gastritis, unspecified, without bleeding (principal); K31.89 Other diseases of stomach and duodenum; K31.7 Polyp of stomach and duodenum; K20.9 Esophagitis, unspecified; D12.2 Benign neoplasm of ascending colon; K64.8 Other hemorrhoids; K44.9 Diaphragmatic hernia without obstruction or gangrene; K64.4 Residual hemorrhoidal skin tags; I13.2 Hypertensive heart and chronic kidney disease with heart failure and with stage 5 chronic kidney disease, or end stage renal disease; I50.9 Heart failure, unspecified; E11.22 Type 2 diabetes mellitus with diabetic chronic kidney disease; N18.5 Chronic kidney disease, stage 5; M50.30 Other cervical disc degeneration, unspecified cervical region; E11.43 Type 2 diabetes mellitus with diabetic autonomic (poly)neuropathy; K31.84 Gastroparesis; E78.2 Mixed hyperlipidemia; E03.9 Hypothyroidism, unspecified; Z88.1 Allergy status to other antibiotic agents; Z88.5 Allergy status to narcotic agent; Z88.8 Allergy status to other drugs, medicaments and biological substances; Z91.012 Allergy to eggs; Z91.011 Allergy to milk products; Z88.2 Allergy status to sulfonamides; Z79.899 Other long term (current) drug therapy; Z79.4 Long term (current) use of insulin; Z79.82 Long term (current) use of aspirin
CPT/HCPCS: 43239; 43251; 45380; 46221; J2001; J2370; J2405; J2550; J2704; J2710; J3490; J7040; J7050; J7120; 00813

== ENCOUNTER 2022-08-27 12:32 | Emergency (ER) | payer MEDICARE, BC ==
[2022-08-27] MEDS ORDERED: HYDROmorphone 1 MG/ML Syringe IVPUSH STA (13:57)
[2022-08-27] MEDS ORDERED: Ondansetron 4 MG/2 ML SDV IVPUSH ONE (13:57)
[2022-08-27] MEDS ORDERED: Sodium Chloride 0.9% 10 ML Syringe FLUSH PRN (13:57)
[2022-08-27] MEDS ORDERED: Sodium Chloride 0.9% 1,000 ML IV SCH (14:00)
[2022-08-27 18:00] VITALS: BP 194/99; PULSE 78
== END 2022-08-27 18:12 | disposition home or self-care (01) ==
LOC: JD.ED 12:32
DX: K59.09 Other constipation (principal); I13.2 Hypertensive heart and chronic kidney disease with heart failure and with stage 5 chronic kidney disease, or end stage renal disease; E11.22 Type 2 diabetes mellitus with diabetic chronic kidney disease; N18.5 Chronic kidney disease, stage 5; I50.9 Heart failure, unspecified; D63.1 Anemia in chronic kidney disease; E78.00 Pure hypercholesterolemia, unspecified; K21.9 Gastro-esophageal reflux disease without esophagitis; E11.40 Type 2 diabetes mellitus with diabetic neuropathy, unspecified; E03.9 Hypothyroidism, unspecified; E66.9 Obesity, unspecified; Z68.41 Body mass index [BMI] 40.0-44.9, adult; Z88.8 Allergy status to other drugs, medicaments and biological substances; Z88.6 Allergy status to analgesic agent; Z88.1 Allergy status to other antibiotic agents; Z88.5 Allergy status to narcotic agent; Z91.013 Allergy to seafood; Z88.2 Allergy status to sulfonamides; Z91.012 Allergy to eggs; Z79.4 Long term (current) use of insulin; Z79.82 Long term (current) use of aspirin; Z79.899 Other long term (current) drug therapy
CPT/HCPCS: 36415; 74176; 80053; 81001; 83690; 85025; 86140; 96361; 96374; 96375; 99284; J1170; J2405; J7030

== ENCOUNTER 2022-10-18 11:15 | Inpatient (IN) | payer MEDICARE, BC ==
[2022-10-18] MEDS ORDERED: Furosemide 40 MG/4 ML VIAL IVPUSH ONE (11:59)
[2022-10-18] MEDS ORDERED: HYDROmorphone 1 MG/ML Syringe IVPUSH ONE (11:59)
[2022-10-18] MEDS ORDERED: Metoclopramide 10 MG/2 ML SDV IVPUSH ONE (12:00)
[2022-10-18 12:54] LABS: HEMOGLOBIN A1C 7.2 %
[2022-10-18 13:24] LABS: CORONAVIRUS COVID-19 NAA NEGATIVE (NEGATIVE)
[2022-10-18] MEDS ORDERED: cefTRIAXone 2 GM in Sodium Chloride 0.9% 100 ML IV ONE (14:37)
[2022-10-18] MEDS ORDERED: Pantoprazole 40 MG Vial ONE (15:39)
[2022-10-18] MEDS ORDERED: Pantoprazole 40 MG Vial IVPUSH ONE (16:00)
[2022-10-18] MEDS ORDERED: Polyethylene Glycol 3350 Powder 17 GM Packet PO PRN (17:25)
[2022-10-18] MEDS: Levothyroxine 50 MCG Tab PO SCH (18:05)
[2022-10-18] MEDS: Insulin Glargine,Human Rec. Analog 100 Units/ML 3 ML Pen SUBCUT SCH (18:38)
[2022-10-18] MEDS: Bumetanide 1 MG Tab PO SCH (18:38)
[2022-10-18] MEDS: Polyethylene Glycol 3350 Powder 17 GM Packet PO PRN (18:40)
[2022-10-18] MEDS: Pantoprazole 40 MG Tab.CR PO SCH (23:23)
[2022-10-18] MEDS: Docusate Sodium 100 MG Cap PO SCH (23:23)
[2022-10-19] MEDS: Levothyroxine 25 MCG Tab PO SCH (05:12)
[2022-10-19] MEDS: Acetaminophen 325 MG Tab PO PRN ×3 (05:12→21:17)
[2022-10-19] MEDS: Bumetanide 1 MG Tab PO SCH (05:12)
[2022-10-19] MEDS: Pantoprazole 40 MG Tab.CR PO SCH ×2 (05:12→21:20)
[2022-10-19] MEDS: Losartan 50 MG Tab PO SCH (09:23)
[2022-10-19] MEDS: Multivitamin Tab PO SCH (09:24)
[2022-10-19] MEDS: Docusate Sodium 100 MG Cap PO SCH ×2 (09:24→21:19)
[2022-10-19] MEDS: Calcitriol 0.25 MCG Cap PO SCH (09:24)
[2022-10-19] MEDS: atorvaSTATin 20 MG Tab PO SCH (09:25)
[2022-10-19] MEDS: Isosorbide Mononitrate 60 MG Tab.ER PO SCH (09:25)
[2022-10-19] MEDS: Cholecalciferol (Vitamin D3) 5,000 UNIT Cap PO SCH (09:25)
[2022-10-19] MEDS: Metoprolol Succinate 50 MG Tab.ER PO SCH (09:26)
[2022-10-19] MEDS: Aspirin 81 MG Tab.EC PO SCH (09:26)
[2022-10-19] MEDS: Insulin Glargine,Human Rec. Analog 100 Units/ML 3 ML Pen SUBCUT SCH ×3 (09:26→17:52)
[2022-10-19] MEDS: Enoxaparin 30 MG/0.3 ML Syringe SUBCUT SCH (09:27)
[2022-10-19] MEDS: Linaclotide [Linzess] 72 MCG Capsule PO SCH (09:31)
[2022-10-19] MEDS ORDERED: Non-Formulary Medication 1 Each (Insulin Detemir 100 UNIT/ML Insuln.Pen) SQ SCH (13:45)
[2022-10-19] MEDS ORDERED: Bumetanide 1 MG/4 ML MDV IV ONE (14:00)
[2022-10-19] MEDS: cefTRIAXone 1 GM in Sodium Chloride 0.9% 100 ML IV SCH (14:06)
[2022-10-19] MEDS: hydrALAZINE 25 MG Tab PO SCH ×2 (15:19→21:25)
[2022-10-19] MEDS: cloNIDine 0.1 MG Tab PO SCH (21:24)
[2022-10-19] MEDS: Insulin Lispro 100 Unit/ML 3 ML KwikPen SUBCUT SCH (21:50)
[2022-10-20] MEDS: Acetaminophen 325 MG Tab PO PRN ×3 (01:15→21:16)
[2022-10-20] MEDS: Polyethylene Glycol 3350 Powder 17 GM Packet PO PRN (04:16)
[2022-10-20] MEDS: Pantoprazole 40 MG Tab.CR PO SCH ×2 (06:04→21:17)
[2022-10-20] MEDS: Levothyroxine 25 MCG Tab PO SCH (06:04)
[2022-10-20] MEDS: Insulin Lispro 100 Unit/ML 3 ML KwikPen SUBCUT SCH ×4 (07:58→21:15)
[2022-10-20] MEDS: Losartan 50 MG Tab PO SCH (08:26)
[2022-10-20] MEDS: Cholecalciferol (Vitamin D3) 5,000 UNIT Cap PO SCH (08:26)
[2022-10-20] MEDS: Isosorbide Mononitrate 60 MG Tab.ER PO SCH (08:26)
[2022-10-20] MEDS: hydrALAZINE 25 MG Tab PO SCH ×3 (08:26→21:19)
[2022-10-20] MEDS: Metoprolol Succinate 50 MG Tab.ER PO SCH (08:26)
[2022-10-20] MEDS: Multivitamin Tab PO SCH (08:27)
[2022-10-20] MEDS: atorvaSTATin 20 MG Tab PO SCH (08:27)
[2022-10-20] MEDS: Docusate Sodium 100 MG Cap PO SCH ×2 (08:27→21:16)
[2022-10-20] MEDS: Calcitriol 0.25 MCG Cap PO SCH (08:28)
[2022-10-20] MEDS: Enoxaparin 30 MG/0.3 ML Syringe SUBCUT SCH (08:28)
[2022-10-20] MEDS: amLODIPine 5 MG Tab PO SCH (08:28)
[2022-10-20] MEDS: cloNIDine 0.1 MG Tab PO SCH ×2 (08:28→21:18)
[2022-10-20] MEDS: Linaclotide [Linzess] 72 MCG Capsule PO SCH (08:29)
[2022-10-20] MEDS: Aspirin 81 MG Tab.EC PO SCH (08:29)
[2022-10-20] MEDS ORDERED: Ondansetron 4 MG/2 ML SDV IVPUSH PRN (09:29)
[2022-10-20] MEDS ORDERED: HYDROmorphone 0.5 MG/0.5 ML Syringe IVPUSH PRN (10:24)
[2022-10-20] MEDS ORDERED: SIMETHICONE PO ONE ×2 (10:43)
[2022-10-20] MEDS ORDERED: LIDOCAINE PO ONE ×2 (10:43)
[2022-10-20] MEDS ORDERED: MAGNESIUM HYDROXIDE PO ONE ×2 (10:43)
[2022-10-20] MEDS ORDERED: ALUMINUM HYDROXIDE PO ONE ×2 (10:43)
[2022-10-20] MEDS ORDERED: Sucralfate Suspension 1 GM/10 ML Cup PO ONE (10:45)
[2022-10-20] MEDS ORDERED: Famotidine 40 MG/5 ML Bottle PO ONE (10:46)
[2022-10-20] MEDS ORDERED: Famotidine 20 MG Tab PO ONE (10:51)
[2022-10-20] MEDS: cefTRIAXone 1 GM in Sodium Chloride 0.9% 100 ML IV SCH (14:58)
[2022-10-20] MEDS: Insulin Glargine,Human Rec. Analog 100 Units/ML 3 ML Pen SUBCUT SCH (17:09)
[2022-10-20] MEDS ORDERED: Magnesium Hydroxide 400 MG/5 ML Susp 30 ML Cup PO ONE (17:14)
[2022-10-21] MEDS: Acetaminophen 325 MG Tab PO PRN ×3 (05:08→17:59)
[2022-10-21] MEDS: Pantoprazole 40 MG Tab.CR PO SCH ×2 (06:10→21:07)
[2022-10-21] MEDS: Levothyroxine 50 MCG Tab PO SCH (06:15)
[2022-10-21] MEDS: Insulin Lispro 100 Unit/ML 3 ML KwikPen SUBCUT SCH ×4 (07:15→21:18)
[2022-10-21] MEDS: Cholecalciferol (Vitamin D3) 5,000 UNIT Cap PO SCH (08:21)
[2022-10-21] MEDS: Metoprolol Succinate 50 MG Tab.ER PO SCH (08:22)
[2022-10-21] MEDS: Isosorbide Mononitrate 60 MG Tab.ER PO SCH (08:22)
[2022-10-21] MEDS: cloNIDine 0.1 MG Tab PO SCH ×2 (08:22→21:15)
[2022-10-21] MEDS: Multivitamin Tab PO SCH (08:22)
[2022-10-21] MEDS: Calcitriol 0.25 MCG Cap PO SCH (08:22)
[2022-10-21] MEDS: Docusate Sodium 100 MG Cap PO SCH ×2 (08:22→21:28)
[2022-10-21] MEDS: Aspirin 81 MG Tab.EC PO SCH (08:22)
[2022-10-21] MEDS: amLODIPine 5 MG Tab PO SCH (08:23)
[2022-10-21] MEDS: hydrALAZINE 25 MG Tab PO SCH ×3 (08:23→21:06)
[2022-10-21] MEDS: atorvaSTATin 20 MG Tab PO SCH (08:23)
[2022-10-21] MEDS: Enoxaparin 30 MG/0.3 ML Syringe SUBCUT SCH (08:43)
[2022-10-21] MEDS ORDERED: Bumetanide 1 MG/4 ML MDV IVPUSH ONE ×2 (08:45→15:00)
[2022-10-21] MEDS: cefTRIAXone 1 GM in Sodium Chloride 0.9% 100 ML IV SCH (14:52)
[2022-10-21] MEDS: Insulin Glargine,Human Rec. Analog 100 Units/ML 3 ML Pen SUBCUT SCH (17:52)
[2022-10-21] MEDS: Acetaminophen/HYDROcodone 325-5 MG Tab PO PRN (21:04)
[2022-10-22] MEDS: Acetaminophen 325 MG Tab PO PRN ×2 (01:13→05:29)
[2022-10-22] MEDS: Pantoprazole 40 MG Tab.CR PO SCH ×2 (05:34→20:53)
[2022-10-22] MEDS: Levothyroxine 25 MCG Tab PO SCH (05:34)
[2022-10-22] MEDS: Cholecalciferol (Vitamin D3) 5,000 UNIT Cap PO SCH (08:18)
[2022-10-22] MEDS: atorvaSTATin 20 MG Tab PO SCH (08:19)
[2022-10-22] MEDS: cloNIDine 0.1 MG Tab PO SCH ×2 (08:19→21:39)
[2022-10-22] MEDS: Isosorbide Mononitrate 60 MG Tab.ER PO SCH (08:19)
[2022-10-22] MEDS: Aspirin 81 MG Tab.EC PO SCH (08:19)
[2022-10-22] MEDS: Calcitriol 0.25 MCG Cap PO SCH (08:19)
[2022-10-22] MEDS: amLODIPine 5 MG Tab PO SCH (08:20)
[2022-10-22] MEDS: Docusate Sodium 100 MG Cap PO SCH ×2 (08:20→20:53)
[2022-10-22] MEDS: Heparin Sodium 5,000 Units/ML Vial SUBCUT SCH ×2 (08:20→15:04)
[2022-10-22] MEDS: Metoprolol Succinate 50 MG Tab.ER PO SCH (08:20)
[2022-10-22] MEDS: hydrALAZINE 25 MG Tab PO SCH ×3 (08:20→21:38)
[2022-10-22] MEDS: Bumetanide 1 MG/4 ML MDV IVPUSH SCH ×2 (08:21→14:09)
[2022-10-22] MEDS: Insulin Lispro 100 Unit/ML 3 ML KwikPen SUBCUT SCH ×3 (08:21→17:20)
[2022-10-22] MEDS: Multivitamin Tab PO SCH (08:22)
[2022-10-22] MEDS: Acetaminophen/HYDROcodone 325-5 MG Tab PO PRN ×3 (10:05→21:36)
[2022-10-22] MEDS: cefTRIAXone 1 GM in Sodium Chloride 0.9% 100 ML IV SCH (14:09)
[2022-10-22] MEDS: Insulin Glargine,Human Rec. Analog 100 Units/ML 3 ML Pen SUBCUT SCH (17:20)
[2022-10-23] MEDS: Heparin Sodium 5,000 Units/ML Vial SUBCUT SCH ×4 (00:07→23:50)
[2022-10-23] MEDS: Acetaminophen/HYDROcodone 325-5 MG Tab PO PRN ×3 (04:41→20:36)
[2022-10-23] MEDS: Levothyroxine 25 MCG Tab PO SCH (06:21)
[2022-10-23] MEDS: Pantoprazole 40 MG Tab.CR PO SCH ×2 (06:21→20:32)
[2022-10-23] MEDS ORDERED: Metolazone 2.5 MG Tab PO ONE ×2 (07:30→09:00)
[2022-10-23] MEDS: Insulin Lispro 100 Unit/ML 3 ML KwikPen SUBCUT SCH ×5 (07:35→20:45)
[2022-10-23] MEDS: Bumetanide 1 MG/4 ML MDV IVPUSH SCH ×2 (08:00→14:02)
[2022-10-23] MEDS: Metoprolol Succinate 50 MG Tab.ER PO SCH (08:00)
[2022-10-23] MEDS: hydrALAZINE 25 MG Tab PO SCH ×3 (08:01→20:36)
[2022-10-23] MEDS: Multivitamin Tab PO SCH (08:01)
[2022-10-23] MEDS: Aspirin 81 MG Tab.EC PO SCH (08:01)
[2022-10-23] MEDS: atorvaSTATin 20 MG Tab PO SCH (08:01)
[2022-10-23] MEDS: amLODIPine 5 MG Tab PO SCH (08:01)
[2022-10-23] MEDS: Docusate Sodium 100 MG Cap PO SCH ×2 (08:01→20:32)
[2022-10-23] MEDS: Cholecalciferol (Vitamin D3) 5,000 UNIT Cap PO SCH (08:01)
[2022-10-23] MEDS: Calcitriol 0.25 MCG Cap PO SCH (08:02)
[2022-10-23] MEDS: cloNIDine 0.1 MG Tab PO SCH ×2 (08:02→20:33)
[2022-10-23] MEDS: Isosorbide Mononitrate 60 MG Tab.ER PO SCH (08:02)
[2022-10-23] MEDS: cefTRIAXone 1 GM in Sodium Chloride 0.9% 100 ML IV SCH (14:03)
[2022-10-23] MEDS ORDERED: Insulin Glargine,Human Rec. Analog 100 Units/ML 3 ML Pen SUBCUT SCH (18:00)
[2022-10-24] MEDS: Acetaminophen/HYDROcodone 325-5 MG Tab PO PRN ×3 (02:01→13:45)
[2022-10-24] MEDS: Pantoprazole 40 MG Tab.CR PO SCH (05:58)
[2022-10-24] MEDS: Levothyroxine 25 MCG Tab PO SCH (05:58)
[2022-10-24] MEDS: Insulin Lispro 100 Unit/ML 3 ML KwikPen SUBCUT SCH ×2 (08:21→12:08)
[2022-10-24] MEDS: Heparin Sodium 5,000 Units/ML Vial SUBCUT SCH (08:22)
[2022-10-24] MEDS: atorvaSTATin 20 MG Tab PO SCH (08:23)
[2022-10-24] MEDS: Cholecalciferol (Vitamin D3) 5,000 UNIT Cap PO SCH (08:23)
[2022-10-24] MEDS: Metoprolol Succinate 50 MG Tab.ER PO SCH (08:25)
[2022-10-24] MEDS: Docusate Sodium 100 MG Cap PO SCH (08:25)
[2022-10-24] MEDS: Aspirin 81 MG Tab.EC PO SCH (08:26)
[2022-10-24] MEDS: Isosorbide Mononitrate 60 MG Tab.ER PO SCH (08:27)
[2022-10-24] MEDS: cloNIDine 0.1 MG Tab PO SCH (08:27)
[2022-10-24] MEDS: amLODIPine 5 MG Tab PO SCH (08:27)
[2022-10-24] MEDS: Multivitamin Tab PO SCH (08:28)
[2022-10-24] MEDS: Calcitriol 0.25 MCG Cap PO SCH (08:28)
[2022-10-24 11:37] VITALS: BP 118/59; PULSE 62
== END 2022-10-24 14:56 | DRG 291 ==
LOC: JD.ED 11:15 → JD.MS 16:43
PROVIDERS: ADMIT Pediatrics; ATTEND Internal Medicine
DX: I13.0 Hypertensive heart and chronic kidney disease with heart failure and stage 1 through stage 4 chronic kidney disease, or unspecified chronic kidney disease (principal); I13.2 Hypertensive heart and chronic kidney disease with heart failure and with stage 5 chronic kidney disease, or end stage renal disease; I50.33 Acute on chronic diastolic (congestive) heart failure; N18.5 Chronic kidney disease, stage 5; Z68.42 Body mass index [BMI] 45.0-49.9, adult; N17.9 Acute kidney failure, unspecified; D72.828 Other elevated white blood cell count; E87.1 Hypo-osmolality and hyponatremia; E87.20 Acidosis, unspecified; L03.116 Cellulitis of left lower limb; E66.01 Morbid (severe) obesity due to excess calories; R77.8 Other specified abnormalities of plasma proteins; Z20.822 Contact with and (suspected) exposure to COVID-19; E11.22 Type 2 diabetes mellitus with diabetic chronic kidney disease; H54.7 Unspecified visual loss; E11.21 Type 2 diabetes mellitus with diabetic nephropathy; M54.9 Dorsalgia, unspecified; G89.29 Other chronic pain; E11.40 Type 2 diabetes mellitus with diabetic neuropathy, unspecified; E03.9 Hypothyroidism, unspecified; E21.3 Hyperparathyroidism, unspecified; E55.9 Vitamin D deficiency, unspecified; D63.1 Anemia in chronic kidney disease; G47.33 Obstructive sleep apnea (adult) (pediatric); R79.82 Elevated C-reactive protein (CRP); R10.10 Upper abdominal pain, unspecified; E78.00 Pure hypercholesterolemia, unspecified; K21.9 Gastro-esophageal reflux disease without esophagitis; F32.A Depression, unspecified; F41.9 Anxiety disorder, unspecified; Z79.4 Long term (current) use of insulin; Z88.2 Allergy status to sulfonamides; Z91.013 Allergy to seafood; Z79.899 Other long term (current) drug therapy; Z79.890 Hormone replacement therapy; Z79.82 Long term (current) use of aspirin; Z86.718 Personal history of other venous thrombosis and embolism; Z79.01 Long term (current) use of anticoagulants; Z90.49 Acquired absence of other specified parts of digestive tract; Z91.012 Allergy to eggs; Z91.011 Allergy to milk products; Z88.1 Allergy status to other antibiotic agents; Z88.5 Allergy status to narcotic agent
CPT/HCPCS: 0241U; 36415; 71045; 71250; 74176; 80048; 80053; 80307; 81001; 82150; 82553; 82947; 83036; 83605; 83690; 83735; 83880; 84443; 84484; 85025; 85027; 85610; 85652; 85730; 86140; 93005; 93306; 93925; 93970; 94760; 94761; 96365; 96375; 97162; 97166; 97530; 97535; 99285; A9270-GY; C9113; J0696; J1170; J1644; J1650; J1815; J1815-GY; J1940; J2405; J2765; J3475; J3490

== ENCOUNTER 2022-12-13 17:27 | Emergency (ER) | payer MEDICARE, BC ==
[2022-12-13] MEDS ORDERED: ceFAZolin 1 GM in Sodium Chloride 0.9% 50 ML IV ONE (18:36)
[2022-12-13] MEDS ORDERED: Doxycycline Monohydrate 100 MG Cap PO ONE (18:38)
[2022-12-13] MEDS ORDERED: Acetaminophen/HYDROcodone 325-5 MG Tab PO ONE (18:42)
[2022-12-13 21:48] VITALS: BP 129/50; PULSE 69
== END 2022-12-13 20:35 ==
LOC: JD.ED 17:27
DX: L03.114 Cellulitis of left upper limb (principal); E78.00 Pure hypercholesterolemia, unspecified; E11.22 Type 2 diabetes mellitus with diabetic chronic kidney disease; E11.21 Type 2 diabetes mellitus with diabetic nephropathy; I13.2 Hypertensive heart and chronic kidney disease with heart failure and with stage 5 chronic kidney disease, or end stage renal disease; N18.5 Chronic kidney disease, stage 5; I50.9 Heart failure, unspecified; E03.9 Hypothyroidism, unspecified; Z88.5 Allergy status to narcotic agent; Z91.013 Allergy to seafood; Z91.011 Allergy to milk products; Z88.2 Allergy status to sulfonamides; Z91.012 Allergy to eggs; Z20.822 Contact with and (suspected) exposure to COVID-19; Z79.4 Long term (current) use of insulin; Z79.899 Other long term (current) drug therapy
CPT/HCPCS: 36415; 80053; 85025; 86140; 96365; 99283; A9270; J0690; 99284

== ENCOUNTER 2022-12-17 14:22 | Emergency (ER) | payer MEDICARE, BC ==
[2022-12-17 14:40] VITALS: BP 142/62; PULSE 97
[2022-12-17] MEDS ORDERED: Sodium Chloride 0.9% 10 ML Syringe FLUSH PRN (14:57)
[2022-12-17] MEDS ORDERED: Insulin Regular, Human 100 Units/ML 3 ML Vial SUBCUT ONE (17:52)
== END 2022-12-17 18:17 ==
LOC: JD.ED 14:22
DX: L02.612 Cutaneous abscess of left foot (principal); I13.2 Hypertensive heart and chronic kidney disease with heart failure and with stage 5 chronic kidney disease, or end stage renal disease; I50.9 Heart failure, unspecified; N18.5 Chronic kidney disease, stage 5; E78.00 Pure hypercholesterolemia, unspecified; E11.22 Type 2 diabetes mellitus with diabetic chronic kidney disease; Z88.6 Allergy status to analgesic agent; Z88.1 Allergy status to other antibiotic agents; Z88.5 Allergy status to narcotic agent; Z91.013 Allergy to seafood; Z91.041 Radiographic dye allergy status; Z91.011 Allergy to milk products; Z79.4 Long term (current) use of insulin; Z88.2 Allergy status to sulfonamides; Z91.012 Allergy to eggs; Z79.899 Other long term (current) drug therapy; Z79.82 Long term (current) use of aspirin; Z90.49 Acquired absence of other specified parts of digestive tract; Z20.822 Contact with and (suspected) exposure to COVID-19
CPT/HCPCS: 36415; 80053; 85025; 86140; 87040; 96365; 99284; J1815; J3370; J3490; J7050; U0002

== ENCOUNTER 2023-10-27 07:36 | Day surgery (SDC) | payer MEDICARE, BC ==
[~2023-10-27 07:36] MED LIST changes: -Lactated Ringers 1,000 ML IV SCH; +Lidocaine 1% 6 ML ONE; -Lidocaine 1%/Sod Bicarbonate in NS 8.4% 1 ML Syringe IDERM PRN; +Propofol 200 MG/20 ML SDV ONE; -Sodium Chloride 0.9% 10 ML Syringe FLUSH PRN
[2023-10-27 08:23] LABS: BASOPHILS PERCENT AUTO 0.5 % (0.0-1.0); EOSINOPHILS ABSOLUTE AUTO 0.4 K/mm3 (0.0-0.4); EOSINOPHILS PERCENT AUTO 6.1 % (0.0-6.0); HEMATOCRIT 34.9 % (37.0-47.0); HEMOGLOBIN 10.9 gm/dl (12.0-16.0); IMMATURE GRAN ABSOLUTE AUTO 0.02 K/mm3 (0.00-0.05); IMMATURE GRAN PERCENT AUTO 0.3 % (0.0-0.4); LYMPHOCYTES ABSOLUTE AUTO 1.5 K/mm3 (1.0-4.8); LYMPHOCYTES PERCENT AUTO 23.7 % (24.0-44.0); MEAN CORPUSCULAR HGB CONC 31.2 g/dl (32.0-36.0); MEAN CORPUSCULAR VOLUME 89.7 fl (83.0-99.0); MEAN PLATELET VOLUME 10.9 fl (9.4-12.3); MONOCYTES ABSOLUTE AUTO 0.5 K/mm3 (0.0-0.8); MONOCYTES PERCENT AUTO 7.9 % (0.0-8.0); NEUTROPHILS ABSOLUTE AUTO 3.8 K/mm3 (1.8-7.7); NEUTROPHILS PERCENT AUTO 61.5 % (41.0-71.0); PLATELET COUNT,PLT 257 K/mm3 (150-400); RED BLOOD CELL COUNT 3.89 M/mm3 (4.10-5.30); WHITE BLOOD CELL COUNT,WBC 6.19 K/mm3 (3.9-11.3)
[2023-10-27] MEDS: Sodium Chloride 0.9% 1,000 ML IV SCH (08:25)
[2023-10-27 08:37] LABS: A/G RATIO 0.9 (1-2); ALBUMIN 3.7 g/dl (3.4-5.0); BILIRUBIN TOTAL 0.5 mg/dL (0.2-1.0); BUN/CREATININE RATIO 8.9 (14-18); CALCIUM 9.5 mg/dL (8.5-10.1); EST CRCL DRUG DOSING (CG) 9.33 mL/min; PROTEIN TOTAL,TP 7.9 g/dl (6.4-8.2)
[2023-10-27 08:41] LABS: CREATININE 5.4 mg/dL (0.55-1.02)
[2023-10-27] MEDS ORDERED: Propofol 200 MG/20 ML SDV ONE (09:53)
[2023-10-27 12:13] VITALS: BP 148/64; PULSE 70
== END 2023-10-27 11:38 | disposition home or self-care (01) ==
LOC: JD.SDS 07:36
PROVIDERS: ATTEND Surgery
DX: D12.2 Benign neoplasm of ascending colon (principal); K29.50 Unspecified chronic gastritis without bleeding; K63.5 Polyp of colon; K29.80 Duodenitis without bleeding; I13.2 Hypertensive heart and chronic kidney disease with heart failure and with stage 5 chronic kidney disease, or end stage renal disease; E11.22 Type 2 diabetes mellitus with diabetic chronic kidney disease; N18.6 End stage renal disease; I50.42 Chronic combined systolic (congestive) and diastolic (congestive) heart failure; E11.42 Type 2 diabetes mellitus with diabetic polyneuropathy; E11.319 Type 2 diabetes mellitus with unspecified diabetic retinopathy without macular edema; E03.9 Hypothyroidism, unspecified; F41.9 Anxiety disorder, unspecified; E66.9 Obesity, unspecified; E78.2 Mixed hyperlipidemia; Z68.41 Body mass index [BMI] 40.0-44.9, adult; Z79.890 Hormone replacement therapy; Z79.899 Other long term (current) drug therapy; Z79.4 Long term (current) use of insulin; Z90.49 Acquired absence of other specified parts of digestive tract; Z98.890 Other specified postprocedural states; Z88.8 Allergy status to other drugs, medicaments and biological substances; Z88.1 Allergy status to other antibiotic agents; Z88.2 Allergy status to sulfonamides; Z91.012 Allergy to eggs; Z88.5 Allergy status to narcotic agent; Z91.013 Allergy to seafood; Z91.018 Allergy to other foods; Z91.041 Radiographic dye allergy status
CPT/HCPCS: 00813; 36415; 80053; 85025; J2704; J3490; J7030

== ENCOUNTER 2025-06-12 21:56 | Emergency (ER) | payer MEDICARE, BC ==
[2025-06-13 00:17] LABS: BASOPHILS ABSOLUTE AUTO 0.1 K/mm3 (0.0-0.2); BASOPHILS PERCENT AUTO 0.6 % (0.0-1.0); EOSINOPHILS ABSOLUTE AUTO 0.2 K/mm3 (0.0-0.4); EOSINOPHILS PERCENT AUTO 1.8 % (0.0-6.0); IMMATURE GRAN ABSOLUTE AUTO 0.05 K/mm3 (0.00-0.05); IMMATURE GRAN PERCENT AUTO 0.5 % (0.0-0.4); LYMPHOCYTES ABSOLUTE AUTO 1.5 K/mm3 (1.0-4.8); LYMPHOCYTES PERCENT AUTO 14.2 % (24.0-44.0); MEAN PLATELET VOLUME 11.8 fl (9.4-12.3); MONOCYTES ABSOLUTE AUTO 1.0 K/mm3 (0.0-0.8); MONOCYTES PERCENT AUTO 9.7 % (0.0-8.0); NEUTROPHILS ABSOLUTE AUTO 7.5 K/mm3 (1.8-7.7); NEUTROPHILS PERCENT AUTO 73.2 % (41.0-71.0); NRBC ABSOLUTE 0.00 (0.00-0.02); NRBC PERCENT 0.0 % (0.0-0.2); PLATELET COUNT,PLT 226 K/mm3 (150-400); RED BLOOD CELL COUNT 4.74 M/mm3 (4.10-5.30); WHITE BLOOD CELL COUNT,WBC 10.28 K/mm3 (3.9-11.3)
[2025-06-13 00:38] LABS: A/G RATIO 0.7 (1-2); ALANINE AMINOTRANSFERASE,ALT 26.0 U/L (14-59); ASPARTATE AMNIOTRANSFERASE,AST 20.0 U/L (15-37); BILIRUBIN TOTAL 0.4 mg/dL (0.2-1.0); BLOOD UREA NITROGEN,BUN 41.0 mg/dL (7-18); CARBON DIOXIDE,CO2 30.0 mEq/L (21-32); CHLORIDE,CL 92.0 mEq/L (98-107); CREATINE KINASE,CK 9.0 U/L (26-192); CREATININE 8.8 mg/dL (0.55-1.02); EST CRCL DRUG DOSING (CG) 5.65 mL/min; ESTIMATED GFR 5.0 mL/min (>60); GLUCOSE RANDOM 126.0 mg/dL (70-99); POTASSIUM,K 4.5 mEq/L (3.5-5.1); PROTEIN TOTAL,TP 7.9 g/dl (6.4-8.2); SODIUM,NA 135.0 mEq/L (136-145)
[2025-06-13 02:08] LABS: APPEARANCE,URINE CLOUDY (Clear); GLUCOSE,URINE NEGATIVE (Negative); OCCULT BLOOD,URINE NEGATIVE (Negative)
[2025-06-13 02:44] LABS: SQUAMOUS EPITHELIAL CELLS,UR 20-30 /hpf (0-5)
[2025-06-13 04:27] VITALS: BP 120/78; PULSE 80
== END 2025-06-13 04:00 | disposition home or self-care (01) ==
LOC: JD.ED 21:56
DX: M25.552 Pain in left hip (principal); M25.511 Pain in right shoulder; M79.10 Myalgia, unspecified site; I13.0 Hypertensive heart and chronic kidney disease with heart failure and stage 1 through stage 4 chronic kidney disease, or unspecified chronic kidney disease; I50.9 Heart failure, unspecified; N18.9 Chronic kidney disease, unspecified; K21.9 Gastro-esophageal reflux disease without esophagitis; E11.22 Type 2 diabetes mellitus with diabetic chronic kidney disease; E66.9 Obesity, unspecified; E03.9 Hypothyroidism, unspecified; Z91.012 Allergy to eggs; Z91.011 Allergy to milk products; Z91.013 Allergy to seafood; Z88.8 Allergy status to other drugs, medicaments and biological substances; Z91.041 Radiographic dye allergy status; Z88.2 Allergy status to sulfonamides; Z88.1 Allergy status to other antibiotic agents; Z79.4 Long term (current) use of insulin; Z79.82 Long term (current) use of aspirin; Z79.890 Hormone replacement therapy; Z90.49 Acquired absence of other specified parts of digestive tract; Z68.37 Body mass index [BMI] 37.0-37.9, adult
CPT/HCPCS: 36415; 71045; 72170; 72192; 73030; 73552; 80053; 81001; 82550; 85025; 87040; 87428; 99284; A9270; 99283